=== PATIENT | female | born 2000 | race Hispanic/Latino ===

== ENCOUNTER 2025-11-05 13:02 | Emergency (ER) | payer OTHER ==
[~2025-11-05] VITALS: Ht 149.9 cm; Wt 52.3 kg
[2025-11-05 13:06] VITALS: TEMP 97.7
[2025-11-05 13:54] LABS: BASO # 0.0 10^3/uL (0.0-0.2); BASO % 0.5 % (0.0-1.0); EOS # 0.1 10^3/uL (0.0-0.5); EOS % 2.4 % (0.0-3.0); LYMPH # 2.2 10^3/uL (1.5-5.0); LYMPH % 37.6 % (24.0-44.0); MONO # 0.5 10^3/uL (0.0-0.8); MONO % 8.2 % (2.0-8.0); NEUTROPHILS # 3.0 10^3/uL (1.5-8.5); NEUTROPHILS % 51.1 % (36.0-66.0); PLATELET COUNT, AUTOMATED 224 10^3/uL (150-450)
[2025-11-05 14:19] LABS: ALT/SGPT 51 U/L (7.0-40); AST/SGOT 51 U/L (<34); CALCIUM LEVEL 9.5 MG/DL (8.5-10.1); CARBON DIOXIDE LEVEL 24 MMOL/L (20-31); CHLORIDE LEVEL 106 MMOL/L (98-107); CK-MB VALUE MASS 1.6 NG/ML (<3.6); CREATININE FOR GFR 0.64 MG/DL (0.55-1.30); GLOMERULAR FILTRATION RATE > 90.0 (>60); MAGNESIUM LEVEL 1.8 MG/DL (1.8-2.4); POTASSIUM SERUM 3.7 MMOL/L (3.5-5.1); SODIUM LEVEL 140 MMOL/L (136-145)
[2025-11-05 14:20] LABS: HCG, SERUM QUALITATIVE NEGATIVE (NEGATIVE)
[2025-11-05 14:22] LABS: CK-MB VALUE MASS 1.6 NG/ML (<3.6); CPK CREATINE PHOSPHOKINASE 120 U/L (34-145); MB/CK RELATIVE INDEX 1.33 (< OR =4)
[2025-11-05 14:28] LABS: CPK CREATINE PHOSPHOKINASE 124 U/L (34-145); MB/CK RELATIVE INDEX 1.29 (< OR =4)
[2025-11-05] MEDS ORDERED: ISON1TAB5 PO (15:00)
[2025-11-05] MEDS ORDERED: PYRI50TA8 PO (15:01)
[2025-11-05 17:01] VITALS: BP 98/66
[2025-11-05 17:02] VITALS: O2SAT 100
[2025-11-05 17:14] LABS: FREE T4 1.07 NG/DL (0.89-1.76)
== END 2025-11-05 17:08 | disposition home or self-care (01) ==
LOC: M ED 13:02
DX: R07.82 Intercostal pain (principal); Z79.899 Other long term (current) drug therapy